=== PATIENT | male | born 2000 | race African-American/Black ===

== ENCOUNTER 2023-12-10 22:37 | Emergency (ER) | payer OTHER ==
[2023-12-10] MEDS ORDERED: ALBUTEROL 2.5 MG/3 ML NEB SOL ONE (23:02)
[2023-12-10] MEDS ORDERED: predniSONE 20 MG TAB ONE (23:02)
[2023-12-10] MEDS ORDERED: IPRATROPIUM BROM 0.5MG/2.5ML ONE (23:02)
--- NOTE | 2023-12-11 00:29 | ER ---
Nurse's Notes [facility] Name: Varghese Ugalde III Age: 23 yrs Sex: Male : 2000 Arrival Date: 12/10/2023 Time: 22:37 Bed 15 Private MD: Diagnosis: Unspecified asthma with (acute) exacerbation Presentation: 12/09 22:50 Chief complaint: Patient states: ASTHMA FLARE-UP CAUSING HIS CHEST TO HURT. Coronavirus jj7 screen: At this time, the client does not indicate any symptoms associated with coronavirus-19. Ebola Screen: No symptoms or risks identified at this time. Initial Sepsis Screen: Does the patient meet any 2 criteria? No. Patient's initial sepsis screen is negative. Does the patient have a suspected source of infection? No. Patient's initial sepsis screen is negative. Risk Assessment: Do you want to hurt yourself or someone else? Patient reports no desire to harm self or others. Note NEB TREATMENT. Onset of symptoms was December 10, 2023. 22:50 Method Of Arrival: Ambulatory [facility] 22:50 Acuity: JOANN 4 jj7 Triage Assessment: 22:54 General: Appears in no apparent distress. comfortable, Behavior is calm, cooperative, jj7 appropriate for age. Pain: Complains of pain in chest. Cardiovascular: Reports chest pain. Respiratory: Reports shortness of breath Airway is patent Trachea midline Respiratory effort is even, unlabored, Respiratory pattern is regular, symmetrical. Historical: - Allergies: 22:54 No Known Allergies; jj7 - PMHx: 22:54 Asthma; jj7 - PSHx: 22:54 LEFT PINKY; jj7 - Immunization history:: Adult Immunizations not up to date, Client reports having NOT received the Covid vaccine. Flu vaccine is not up to date. - Infectious Disease History:: Denies. - Social history:: Smoking status: Patient denies any tobacco usage or history of. Patient/guardian denies using alcohol, street drugs, IV drugs. Screenin:29 [facility] ED Fall Risk Assessment (Adult) History of falling in the last 3 months, vc1 including since admission No falls in past 3 months (0 pts) Confusion or Disorientation No (0 pts) Intoxicated or Sedated No (0 pts) Impaired Gait No (0 pts) Mobility Assist Device Used No (0 pt) Altered Elimination No (0 pt) Score/Fall Risk Level 0 - 2 = Low Risk Oriented to surroundings, Maintained a safe environment, Educated pt \T\ family on fall prevention, incl call for assistance when getting out of bed. Abuse screen: Denies threats or abuse. Nutritional screening: No deficits noted. Tuberculosis screening: No symptoms or risk factors identified. Vital Signs: 22:50 BP 132 / 88; Pulse 80; Resp 20; Temp 98.8; Pulse Ox 100% ; Weight 86.18 kg; Height 6 jj7 ft. 0 in. ; Pain 8/10; 23:33 BP 125 / 75; Pulse 79; Resp 18; Pulse Ox 98% on R/A; vc1 23:46 BP 129 / 75; Pulse 72; Pulse Ox 98% on R/A; Pain 0/10; 6 12/10 00:39 BP 120 / 74; Pulse 64; Resp 19; Temp 98.2(TE); Pulse Ox 100% on R/A; Pain 0/10; 6 12/09 22:50 Body Mass Index 25.77 (86.18 kg, 182.88 cm) [facility] 12/09 22:50 Pain Scale: Adult j 23:46 Pain Scale: Adult 6 12/10 00:39 Pain Scale: Adult 6 ED Course: 12/09 22:43 Patient arrived in ED. mg5 22:46 Regi Antunez FNP-C is [facility]. kb 22:46 Alverto Villar MD is Attending Physician. kb 22:54 Triage completed. jj7 22:54 Arm band placed on left wrist. j7 23:30 Patient has correct armband on for positive identification. Bed in low position. Call vc1 light in reach. Pulse ox on. NIBP on. 23:30 No provider procedures requiring assistance completed. Patient did not have IV access vc1 during this emergency room visit. Response to oxygen therapy: symptoms improved. 23:46 Ok Morales, LOI is Primary Nurse. 6 12/10 00:18 Chest Single View In Process Unspecified. EDMS 00:40 Provided Education on: get a PCP. 6 Administered Medications: 12/09 23:06 Drug: predniSONE PO 40 mg PO once Route: PO; j 23:33 Follow up: Response: No adverse reaction; Marked relief of symptoms vc1 23:06 Drug: Albuterol Inhalation 2.5 mg Inhalation once Route: Inhalation; jj7 23:33 Follow up: Response: No adverse reaction; Marked relief of symptoms vc1 23:34 Follow up: Response: No adverse reaction; Marked relief of symptoms vc1 23:06 Drug: Ipratropium Inhalation Aerosol 0.5 mg Inhalation once Route: Inhalation; jj7 Medication: 23:33 VIS not applicable for this client. vc1 Outcome: 12/10 00:28 Discharge ordered by . claire 00:40 Discharged to home ambulatory, tm6 00:40 Condition: stable 00:40 Discharge instructions given to patient, Instructed on discharge instructions, follow up and referral plans. medication usage, Demonstrated understanding of instructions, follow-up care, medications, Prescriptions given X 3, 00:40 Patient left the ED. tm6 Signatures: Dispatcher [employer] EDMS Regi Antunez, [facility] [employer]CH CREDIT COUNSELOR-Nancy Conteh RN RN vc1 Nicky Panda RN RN jj7 Fatou Garces 5 Ok Morales RN RN tm6
--- NOTE | 2023-12-11 00:29 | EDPHYS ---
Physician Documentation [facility] Name: Varghese Ugalde III Age: 23 yrs Sex: Male : 2000 Arrival Date: 12/10/2023 Time: 22:37 Bed 15 Private MD: ED Physician Alverto Villar HPI: 12/09 22:53 This 23 yrs old Male presents to ER via Unassigned with complaints of Chest Pain, kb Breathing Difficulty. 22:53 Pt is a 23 year old male who presents for asthma exacerbation. States he got caught in kb the rain this morning and it caused his asthma to flare up. Reports pain in his chest that he normally has due to asthma. States he does not have an inhaler. Symptoms began at 0500. Denies shortness of breath, nausea. . Historical: - Allergies: 22:54 No Known Allergies; jj7 - PMHx: 22:54 Asthma; jj7 - PSHx: 22:54 LEFT PINKY; jj7 - Immunization history:: Adult Immunizations not up to date, Client reports having NOT received the Covid vaccine. Flu vaccine is not up to date. - Infectious Disease History:: Denies. - Social history:: Smoking status: Patient denies any tobacco usage or history of. Patient/guardian denies using alcohol, street drugs, IV drugs. ROS: 22:53 Constitutional: As per HPI kb Exam: 22:53 Constitutional: This is a well developed, well nourished patient who is awake, alert, kb and in no acute distress. Head/Face: Normocephalic, atraumatic. ENT: Moist Mucous membranes Cardiovascular: Regular rate Abdomen/GI: Soft, non-tender. No distention Skin: Warm, dry with normal turgor. Normal color. MS/ Extremity: Pulses equal, no cyanosis. Neurovascular intact. Full, normal range of motion. Neuro: Awake and alert, GCS 15, oriented to person, place, time, and situation. Moves all extremities. Normal gait. 22:53 Respiratory: the patient does not display signs of respiratory distress, Respirations: normal, Breath sounds: wheezing: expiratory that is mild, bilateral lower lobes, 23:21 ECG was reviewed by the Attending Physician. kb Vital Signs: 22:50 BP 132 / 88; Pulse 80; Resp 20; Temp 98.8; Pulse Ox 100% ; Weight 86.18 kg; Height 6 j7 ft. 0 in. ; Pain 8/10; 23:33 BP 125 / 75; Pulse 79; Resp 18; Pulse Ox 98% on R/A; vc1 23:46 BP 129 / 75; Pulse 72; Pulse Ox 98% on R/A; Pain 0/10; tm6 12/10 00:39 BP 120 / 74; Pulse 64; Resp 19; Temp 98.2(TE); Pulse Ox 100% on R/A; Pain 0/10; tm6 12/09 22:50 Body Mass Index 25.77 (86.18 kg, 182.88 cm) [facility] 12/09 22:50 Pain Scale: Adult jj7 23:46 Pain Scale: Adult 6 12/10 00:39 Pain Scale: Adult tm6 MDM: 12/09 22:46 Patient medically screened. kb 22:53 Differential diagnosis: asthma exacerbation, arrhythmia, pneumonia. Data reviewed: kb vital signs, nurses notes. 12/10 00:28 Independent interpretation of the following test(s) in the Emergency Department EKG: kb See my EKG interpretation above X-Ray: My interpretation is chest x-ray without infiltrate. Counseling: I had a detailed discussion with the patient and/or guardian regarding the historical points, exam findings, and any diagnostic results supporting the discharge/admit diagnosis, radiology results, the need for outpatient follow up, a family practitioner, to return to the emergency department if symptoms worsen or persist or if there are any questions or concerns that arise at home. Response to treatment: the patient's symptoms have resolved after treatment. 12/10 00:03 Order name: Chest Single View EDMS 12/09 22:49 Order name: EKG - Nurse/Tech; Complete Time: 23:07 kb EC/14 23:21 Rate is 60 beats/min. Rhythm is regular. QRS [place] is Normal. [place] interval is normal at kb 144 msec. QRS interval is normal at 96 msec. QT interval is normal at 354 msec. Administered Medications: 23:06 Drug: predniSONE PO 40 mg PO once Route: PO; jj7 23:33 Follow up: Response: No adverse reaction; Marked relief of symptoms vc1 23:06 Drug: Albuterol Inhalation 2.5 mg Inhalation once Route: Inhalation; jj7 23:33 Follow up: Response: No adverse reaction; Marked relief of symptoms vc1 23:34 Follow up: Response: No adverse reaction; Marked relief of symptoms vc1 23:06 Drug: Ipratropium Inhalation Aerosol 0.5 mg Inhalation once Route: Inhalation; jj7 Disposition: 12/10 01:04 Co-signature as Attending Physician, Alverto Villar MD I agree with the assessment sp4 and plan of care. I reviewed the patient's care provided by Advanced Practice Provider \T\ agree w/ the diagnosis \T\ care plan. I personally saw the pt \T\ performed a substantive portion of the visit, incldng all aspects of the (History/Exam/Medical Decision Making). Disposition Summary: 12/11/23 00:28 Discharge Ordered Notes: Location: Home kb Condition: Stable kb Diagnosis - Unspecified asthma with (acute) exacerbation kb Followup: kb - With: Emergency Department - When: As needed - Reason: Worsening of condition Followup: kb - With: Private Physician - When: 2 - 3 days - Reason: Recheck today's complaints, Continuance of care, Re-evaluation by your physician Discharge Instructions: - Discharge Summary Sheet kb - Asthma, Adult, [id number] kb Forms: - Work release form kb - Medication Reconciliation Form kb - Antibiotic Education kb - Prescription Opioid Use kb - Patient Portal Instructions kb - Leadership Thank You Letter kb Prescriptions: - albuterol sulfate 90 mcg/actuation Inhalation HFA Aerosol Inhaler - inhale 2 puff INHALATION route every 4-6 hours As needed; 1 unit; Refills: 0, kb Product Selection Permitted - Prednisone 20 mg Oral Tablet - take 1 tablet ORAL route once daily for 5 days; 5 tablet; Refills: 0, Product kb Selection Permitted - Albuterol Sulfate 2.5 mg /3 mL (0.083 %) Inhalation Solution for Nebulization - inhale 1 unit NEBULIZATION route every 8 hours As needed; 1 unit; Refills: 0, kb Product Selection Permitted Signatures: Dispatcher [employer] Regi Kim, ELIZABETHC Nicky Olmstead RN RN jj7 Alverto Villar MD MD sp4 Nancy Weinstein RN vc1 Corrections: (The following items were deleted from the chart) 12/09 22:49 22:49 Chest Single View+RAD.RAD.BRZ ordered. EDMS EDMS
[2023-12-11 01:38] VITALS: BP 120/74; TEMP 98.2; O2SAT 100
--- NOTE | 2023-12-11 12:30 | RAD REPORT ---
EXAM DESCRIPTION: Chest single view CLINICAL HISTORY: PAIN COMPARISON: None FINDINGS: Cardiac silhouette is within normal limits. There is no focal parenchymal or pleural disea se. There is no acute osseous process visualized. IMPRESSION: No evidence of acute cardiopulmonary disease. Electronically signed by: Harsha Spencer MD 12/11/2023 12:40 AM CDT Due to temporary technical issues with the PACS/Fluency reporting system, reports are being signed by the in house radiologist without review as a courtesy to ensure prompt reporting. The interpreting r adiologist is fully responsible for the content of the report.
== END 2023-12-11 00:40 | disposition home or self-care (01) ==
LOC: ER 22:37
DX: J45.901 Unspecified asthma with (acute) exacerbation (principal); Z28.310 Unvaccinated for COVID-19
CPT/HCPCS: 93005; 71045; J7512; J7613; J7644

== ENCOUNTER 2024-03-19 06:10 | Emergency (ER) | payer OTHER, SELFPAY ==
[2024-03-19] MEDS ORDERED: IPRATROPIUM BROM 0.5MG/2.5ML ONE (06:28)
[2024-03-19] MEDS ORDERED: LEVALBUTEROL 1.25 MG/3 ML NEB ONE ×2 (06:28→07:26)
[2024-03-19] MEDS ORDERED: METHYLPREDNISOLONE 125 MG INJ ONE (06:28)
[2024-03-19] MEDS ORDERED: predniSONE 20 MG TAB ONE (06:28)
[2024-03-19] MEDS ORDERED: NA CHLORIDE 0.9% 1,000 ML ONE (06:29)
[2024-03-19] MEDS ORDERED: AZITHROMYCIN 250 MG TAB ONE (06:53)
[2024-03-19 07:04] LABS: Absolute Eosinophils 0.5 K/uL (0-0.5); Absolute Lymphocytes (CBC) 1.3 K/uL (0.7-4.9); Absolute Monocytes 0.8 K/uL (0.1-1.3); Absolute Neutrophil 4.3 K/uL (1.8-8.0); Basophils % 0.4 % (0-1.3); Eosinophils % 7.6 % (0-4.4); Hematocrit 45.1 % (39.6-49.0); Hemoglobin 15.1 g/dL (13.6-17.9); Lymphocytes % 18.1 % (15.3-44.8); MCH 30.6 pg (27.0-35.0); MCHC 33.6 g/dL (32.0-36.0); MCV 91.1 fL (80-100); MPV 8.6 fL (7.6-11.3); Monocytes % 11.5 % (3.3-12.3); Neutrophils % 62.4 % (41.7-73.7); Platelets 211 thou/uL (152-406); RBC Red Blood Cell Count 4.95 M/uL (4.33-5.43); Red Cell Distribution Width 13.4 % (12.1-15.2)
[2024-03-19] MEDS ORDERED: Magnesium Sulfate 2gm IVPB 2 G/50 ML BAG IV ONE (07:09)
[2024-03-19 07:26] LABS: Albumin 3.7 g/dL (3.4-5.0); Albumin/Globulin Ratio 0.9 (1.1-1.8); Anion Gap 8.3 mEq/L (5.0-15.0); Bilirubin Total 0.8 mg/dL (0.2-1.0); Globulin 4.1 g/dL (2.3-3.5); Potassium 4.3 mEq/L (3.5-5.1); Protein, Total 7.8 g/dL (6.4-8.2)
[2024-03-19 07:32] LABS: SARS-CoV-2 Antigen CONTROL BLUE LINE VIS/BG OK; SARS-CoV-2 Antigen Rapid Res Negative (Negative)
--- NOTE | 2024-03-19 07:33 | EDPHYS ---
Physician Documentation [facility] Name: Varghese Ugalde III Age: 23 yrs Sex: Male : 2000 Arrival Date: 03/19/2024 Time: 06:10 Bed 20 Private MD: ED Physician Eddie Landers HPI: 03/19 06:50 This 23 yrs old Black Male presents to ER via Ambulatory with complaints of Asthma shaka Exacerbation, Breathing Difficulty. 06:50 The patient presents to the emergency department with wheezing, Current therapy: shaka albuterol nebs, that began without any particular precipitating event. Onset: The symptoms/episode began/occurred 2 day(s) ago. Modifying factors: The symptoms are alleviated by nothing, the symptoms are aggravated by nothing. Associated signs and symptoms: The patient has no apparent associated signs or symptoms. Severity of symptoms: At their worst the symptoms were moderate in the emergency department the symptoms are unchanged. The patient has experienced similar episodes in the past, multiple times. Historical: - Allergies: 06:28 CORN CONTAINING PRODUCTS; vc1 - PMHx: 06:28 Asthma; vc1 - PSHx: 06:28 LEFT PINKY; vc1 - Immunization history:: Client reports having NOT received the Covid vaccine. - Infectious Disease History:: Denies. - Social history:: Smoking status: Patient reports use of chewing tobacco. ROS: 06:50 Constitutional: Negative for fever, chills, and weight loss, Eyes: Negative for injury, shaka pain, redness, and discharge, ENT: Negative for injury, pain, and discharge, Neck: Negative for injury, pain, and swelling, Cardiovascular: Negative for chest pain, palpitations, and edema, Abdomen/GI: Negative for abdominal pain, nausea, vomiting, diarrhea, and constipation, Back: Negative for injury and pain, : Negative for injury, bleeding, discharge, and swelling, MS/Extremity: Negative for injury and deformity, Skin: Negative for injury, rash, and discoloration, Neuro: Negative for headache, weakness, numbness, tingling, and seizure, Psych: Negative for depression, anxiety, suicide ideation, homicidal ideation, and hallucinations, Allergy/Immunology: Negative for hives, rash, and allergies, Endocrine: Negative for neck swelling, polydipsia, polyuria, polyphagia, and marked weight changes, Hematologic/Lymphatic: Negative for swollen nodes, abnormal bleeding, and unusual bruising, 06:50 Respiratory: Positive for cough, shortness of breath, wheezing, inspiratory, expiratory, Exam: 06:50 Constitutional: This is a well developed, well nourished patient who is awake, alert, shaka and in no acute distress. Head/Face: Normocephalic, atraumatic. Eyes: Pupils equal round and reactive to light, extra-ocular motions intact. Lids and lashes normal. Conjunctiva and sclera are non-icteric and not injected. Cornea within normal limits. Periorbital areas with no swelling, redness, or edema. ENT: Nares patent. No nasal discharge, no septal abnormalities noted. Tympanic membranes are normal and external auditory canals are clear. Oropharynx with no redness, swelling, or masses, exudates, or evidence of obstruction, uvula midline. Mucous membranes moist. Neck: Trachea midline, no thyromegaly or masses palpated, and no cervical lymphadenopathy. Supple, full range of motion without nuchal rigidity, or vertebral point tenderness. No Meningismus. Chest/axilla: Normal chest wall appearance and motion. Nontender with no deformity. No lesions are appreciated. Cardiovascular: Regular rate and rhythm with a normal S1 and S2. No gallops, murmurs, or rubs. Normal PMI, no JVD. No pulse deficits. Abdomen/GI: Soft, non-tender, with normal bowel sounds. No distension or tympany. No guarding or rebound. No evidence of tenderness throughout. Back: No spinal tenderness. No costovertebral tenderness. Full range of motion. Male : Normal genitalia with no discharge or lesions. Skin: Warm, dry with normal turgor. Normal color with no rashes, no lesions, and no evidence of cellulitis. MS/ Extremity: Pulses equal, no cyanosis. Neurovascular intact. Full, normal range of motion. Neuro: Awake and alert, GCS 15, oriented to person, place, time, and situation. Cranial nerves II-XII grossly intact. Motor strength 5/5 in all extremities. Sensory grossly intact. Cerebellar exam normal. Normal gait. Psych: Awake, alert, with orientation to person, place and time. Behavior, mood, and affect are within normal limits. 06:50 Respiratory: the patient does not display signs of respiratory distress, Respirations: labored breathing, that is mild, Breath sounds: rhonchi, that are mild, stridor, that is mild, + upper airway congestion. wheezing: inspiratory expiratory 22, 06:50 Musculoskeletal/extremity: DVT Exam: No signs of deep vein thrombosis. no pain, no swelling, no tenderness, negative Homans' sign noted on exam, no appreciated bluish discoloration, no erythema, no increased warmth, Vital Signs: 06:26 BP 120 / 76; Pulse 73; Resp 18; Pulse Ox 100% ; Weight 79.38 kg; Height 5 ft. 11 in. ; vc1 Pain 0/10; 06:58 BP 137 / 71; Pulse 61; Resp 22 S; Temp 97.9; Pulse Ox 97% on R/A; Pain 0/10; mt4 07:57 BP 132 / 70; Pulse 62; Resp 19; Pulse Ox 100% on R/A; ar6 06:26 Body Mass Index 24.41 (79.38 kg, 180.34 cm) vc1 06:26 Pain Scale: Adult vc1 06:58 Pain Scale: Adult mt4 Juan Coma Score: 06:58 Eye Response: spontaneous(4). Motor Response: obeys commands(6). Verbal Response: mt4 oriented(5). Total: 15. MDM: 06:19 Patient medically screened. shaka 06:52 Differential diagnosis: acute asthma, exercise-induced asthma, reactive airway, CHF, shaka arrythmia, dehydration. Antibiotic administration: The patient is discharged and will get outpatient antibiotics, Zithromax. Data reviewed: vital signs, nurses notes, lab test result(s), radiologic studies, plain films. Consideration of Admission/Observation Escalation of care including admission/observation considered. I considered the following discharge prescriptions or medication management in the emergency department Medications were administered in the Emergency Department. See MAR. Independent interpretation of the following test(s) in the Emergency Department X-Ray: My interpretation is cxr neg. Test considered but Not performed: CT: no ct chest. 03/19 06:22 Order name: CBC with Diff; Complete Time: 07:20 [facility] 03/19 06:22 Order name: Comprehensive Metabolic Panel; Complete Time: 07:32 [facility] 03/19 06:22 Order name: SARS RAPID 03/19 06:22 Order name: Flu [facility] 03/19 06:22 Order name: Chest Pa And Lat (2 Views) XRAY shaka Administered Medications: 06:49 Drug: MethylPrednisoLONE IVP 125 mg IVP once Route: IVP; Site: right antecubital; mt4 07:46 Follow up: Response: No adverse reaction ar6 06:49 Drug: predniSONE PO 60 mg PO once Route: PO; mt4 07:46 Follow up: Response: No adverse reaction ar6 06:49 Drug: Levalbuterol Inhalation 3.75 mg Inhalation once Route: Inhalation; mt4 07:47 Follow up: Response: No adverse reaction ar6 06:49 Drug: Ipratropium Inhalation Aerosol 0.5 mg Inhalation once Route: Inhalation; mt4 07:46 Follow up: Response: No adverse reaction ar6 06:50 Drug: NS 0.9% IV 1000 ml IV at 1 bolus Per protocol; 1000 mL bolus Route: IV; Rate: 1 mt4 bolus; Site: right antecubital; 07:46 Follow up: Response: No adverse reaction; IV Status: Completed infusion ar6 06:55 Drug: AZITHromycin PO 500 mg PO once Route: PO; mt4 07:46 Follow up: Response: No adverse reaction ar6 07:23 Drug: Magnesium Sulfate IVPB 2 grams IVPB once over 1 hrs Route: IVPB; Infused Over: 1 mb9 hrs; Site: right antecubital; 07:50 Follow up: Response: No adverse reaction; IV Status: Completed infusion; IV Intake: [id number] 07:27 Drug: Levalbuterol Inhalation 2.5 mg Inhalation once Route: Inhalation; ar6 07:46 Follow up: Response: No adverse reaction ar6 07:57 Follow up: Response: No adverse reaction ar6 Disposition Summary: 03/19/24 07:32 Discharge Ordered Notes: Location: Home shaka Problem: new shaka Symptoms: have improved shaka Condition: Fair shaka Diagnosis - Acute upper respiratory infection, unspecified shaka - Mild persistent asthma with (acute) exacerbation shaka Followup: shaka - With: Private Physician - When: 2 - 3 days - Reason: Recheck today's complaints, Continuance of care, Re-evaluation by your physician Followup: shaka - With: Harmeet Haley MD - When: 2 - 3 days - Reason: Recheck today's complaints, Re-evaluation by your physician Discharge Instructions: - Discharge Summary Sheet shaka - Asthma, Adult shaka - How to Use a Metered Dose Inhaler shaka - Upper Respiratory Infection, Adult shaka - Asthma Attack shaka - Upper Respiratory Infection, Adult, [id number] shaka - Cough, Adult [facility] Forms: - Medication Reconciliation Form shaka - Antibiotic Education shaka - Prescription Opioid Use shaka - Patient Portal Instructions shaka - Leadership Thank You Letter shaka - Work release form iw Prescriptions: - albuterol sulfate 90 mcg/actuation Inhalation HFA Aerosol Inhaler - inhale 2 puff INHALATION route every 4 to 6 hours as needed for shortness of shaka breath or wheezing; 1 unit; Refills: 0, Product Selection Permitted - Prednisone 20 mg Oral Tablet - take 3 tablets ORAL route once daily for 5 days; 15 tablet; Refills: 0, Product shaka Selection Permitted - Albuterol Sulfate 2.5 mg /3 mL (0.083 %) Inhalation Solution for Nebulization - inhale 1 unit NEBULIZATION route every 6-8 hours As needed; 25 unit; Refills: shaka 0, Product Selection Permitted - Zithromax 500 mg Oral Tablet - take 1 tablet ORAL route once daily for 5 days; 5 tablet; Refills: 0, Product shaka Selection Permitted Signatures: Dispatcher [employer] EDMS Eddie Landers MD MD cha Calcote, Vanessa RN RN vc1 Leonor Estevez RN RN mb9 Ansley Borden RN RN mt4 Reyna Vaughan RN RN ar6 Corrections: (The following items were deleted from the chart) 06:23 06:23 CBC+H.LAB.BRZ ordered. EDMS EDMS 06:23 06:23 COMPREHENSIVE METABOLIC PANEL+C.LAB.BRZ ordered. EDMS EDMS 06:23 06:23 SARS-COV-2 Antigen Rapid+I.LAB.BRZ ordered. EDMS EDMS 06:23 06:23 Influenza Screen (A \T\ B)+BA.LAB.BRZ ordered. EDMS EDMS 06:30 06:28 Allergies: No Known Allergies; vc1 vc1
--- NOTE | 2024-03-19 07:33 | ER ---
Nurse's Notes [facility] Name: Varghese Ugalde III Age: 23 yrs Sex: Male : 2000 Arrival Date: 03/19/2024 Time: 06:10 Bed 20 Private MD: Diagnosis: Acute upper respiratory infection, unspecified;Mild persistent asthma with (acute) exacerbation Presentation: 03/19 06:26 Chief complaint: Patient states: I can't breathe I mow grass and I think my asthma is vc1 acting up. Coronavirus screen: Client denies travel out of the [place] in the last 14 days. At this time, the client does not indicate any symptoms associated with coronavirus-19. Ebola Screen: Patient negative for fever greater than or equal to 101.5 degrees Fahrenheit, and additional compatible Ebola Virus Disease symptoms Patient denies exposure to infectious person. Patient denies travel to an Ebola-affected area in the 21 days before illness onset. No symptoms or risks identified at this time. Initial Sepsis Screen: Does the patient meet any 2 criteria? No. Patient's initial sepsis screen is negative. Does the patient have a suspected source of infection? No. Patient's initial sepsis screen is negative. Risk Assessment: Do you want to hurt yourself or someone else? Patient reports no desire to harm self or others. Onset of symptoms was March 18, 2024. Care prior to arrival: None. Activity prior to arrival: None. Mechanism of Injury: No Mechanism of Injury. Transition of care: patient was not received from another setting of care. 06:26 Method Of Arrival: Ambulatory vc1 06:26 Acuity: JOANN 4 vc1 Triage Assessment: 06:33 General: Appears in no apparent distress. Behavior is calm, cooperative, appropriate vc1 for age. Pain: Denies pain. Neuro: Level of Consciousness is awake, alert, obeys commands, Oriented to person, place, time, situation, Appropriate for age. Cardiovascular: No deficits noted. Capillary refill < 3 seconds Patient's skin is warm and dry. Respiratory: the patient has mild shortness of breath. Respiratory: Reports shortness of breath at rest Airway is patent Respiratory effort is even, unlabored, Respiratory pattern is regular, symmetrical, Onset: The symptoms/episode began/occurred yesterday. Historical: - Allergies: 06:28 CORN CONTAINING PRODUCTS; vc1 - PMHx: 06:28 Asthma; vc1 - PSHx: 06:28 LEFT PINKY; vc1 - Immunization history:: Client reports having NOT received the Covid vaccine. - Infectious Disease History:: Denies. - Social history:: Smoking status: Patient reports use of chewing tobacco. Screenin:31 [facility] ED Fall Risk Assessment (Adult) History of falling in the last 3 months, vc1 including since admission No falls in past 3 months (0 pts) Confusion or Disorientation No (0 pts) Intoxicated or Sedated No (0 pts) Impaired Gait No (0 pts) Mobility Assist Device Used No (0 pt) Altered Elimination No (0 pt) Score/Fall Risk Level 0 - 2 = Low Risk Oriented to surroundings, Maintained a safe environment, Educated pt \T\ family on fall prevention, incl call for assistance when getting out of bed. Abuse screen: Denies threats or abuse. Nutritional screening: No deficits noted. Tuberculosis screening: No symptoms or risk factors identified. Assessment: 06:32 Pain: Denies pain. Cardiovascular: Rhythm is regular. Respiratory: Airway is patent vc1 Respiratory effort is even, Respiratory pattern is regular, symmetrical. 06:58 General: Appears in no apparent distress. slender, Behavior is cooperative, anxious. mt4 Pain: Denies pain. Neuro: Level of Consciousness is awake, alert, obeys commands, confused, Oriented to person, place, time, situation, [employer] are equal bilaterally Moves all extremities. Gait is steady, Speech is normal. Respiratory: Breath sounds with wheezes. GI: Abdomen is flat, non-distended, Abd is soft Abd is non tender. : Denies burning with urination. Musculoskeletal: Capillary refill < 3 seconds, Range of motion: intact in all extremities. 07:28 Reassessment: No changes from previously documented assessment. Patient and/or family mb9 updated on plan of care and expected duration. Pain level reassessed. Patient is alert, oriented x 3, equal unlabored respirations, skin warm/dry/pink. 07:33 Reassessment: D/C pending completion of IV medication. ar6 Vital Signs: 06:26 BP 120 / 76; Pulse 73; Resp 18; Pulse Ox 100% ; Weight 79.38 kg; Height 5 ft. 11 in. ; vc1 Pain 0/10; 06:58 BP 137 / 71; Pulse 61; Resp 22 S; Temp 97.9; Pulse Ox 97% on R/A; Pain 0/10; mt4 07:57 BP 132 / 70; Pulse 62; Resp 19; Pulse Ox 100% on R/A; ar6 06:26 Body Mass Index 24.41 (79.38 kg, 180.34 cm) vc1 06:26 Pain Scale: Adult vc1 06:58 Pain Scale: Adult mt4 [place] Coma Score: 06:58 Eye Response: spontaneous(4). Motor Response: obeys commands(6). Verbal Response: mt4 oriented(5). Total: 15. ED Course: 06:15 Patient arrived in ED. gm2 06:19 Eddie Landers MD is Attending Physician. shaka 06:21 Ansley Borden, LOI is Primary Nurse. mt4 06:28 Triage completed. vc1 06:30 Arm band placed on right wrist. vc1 06:31 Patient has correct armband on for positive identification. Bed in low position. Call vc1 light in reach. Pulse ox on. NIBP on. 06:58 No apparent distress. Resting quietly. Awaiting lab results, Awaiting radiology results.mt4 06:58 Provided Education on: breathing treatment education . Noise minimized. Lights dimmed. mt4 Warm blanket given. Pillow given. Verbal reassurance given. Head of bed elevated. 06:58 No provider procedures requiring assistance completed. Inserted saline lock: 20 gauge mt4 in right antecubital area, using aseptic technique. Patient maintains SpO2 saturation greater than 95% on room air. 07:08 Chest Pa And Lat (2 Views) XRAY In Process Unspecified. EDMS 07:32 Harmeet Haley MD is Referral Physician. shaka 07:57 IV discontinued, intact, bleeding controlled, No redness/swelling at site. Pressure ar6 dressing applied. Administered Medications: 06:49 Drug: MethylPrednisoLONE IVP 125 mg IVP once Route: IVP; Site: right antecubital; mt4 07:46 Follow up: Response: No adverse reaction ar6 06:49 Drug: predniSONE PO 60 mg PO once Route: PO; mt4 07:46 Follow up: Response: No adverse reaction ar6 06:49 Drug: Levalbuterol Inhalation 3.75 mg Inhalation once Route: Inhalation; mt4 07:47 Follow up: Response: No adverse reaction ar6 06:49 Drug: Ipratropium Inhalation Aerosol 0.5 mg Inhalation once Route: Inhalation; mt4 07:46 Follow up: Response: No adverse reaction ar6 06:50 Drug: NS 0.9% IV 1000 ml IV at 1 bolus Per protocol; 1000 mL bolus Route: IV; Rate: 1 mt4 bolus; Site: right antecubital; 07:46 Follow up: Response: No adverse reaction; IV Status: Completed infusion ar6 06:55 Drug: AZITHromycin PO 500 mg PO once Route: PO; mt4 07:46 Follow up: Response: No adverse reaction ar6 07:23 Drug: Magnesium Sulfate IVPB 2 grams IVPB once over 1 hrs Route: IVPB; Infused Over: 1 mb9 hrs; Site: right antecubital; 07:50 Follow up: Response: No adverse reaction; IV Status: Completed infusion; IV Intake: [id number] 07:27 Drug: Levalbuterol Inhalation 2.5 mg Inhalation once Route: Inhalation; ar6 07:46 Follow up: Response: No adverse reaction ar6 07:57 Follow up: Response: No adverse reaction ar6 Medication: 06:58 VIS not applicable for this client. mt4 Intake: 07:50 IV: 50ml; Total: 50ml. ar6 Outcome: 07:32 Discharge ordered by MD. matt 07:57 Discharged to home ambulatory, ar6 07:57 Condition: good 07:57 Discharge instructions given to patient, Instructed on discharge instructions, follow up and referral plans. medication usage, Demonstrated understanding of instructions, follow-up care, medications, Prescriptions given X 4, 08:05 Patient left the ED. ar6 Signatures: Dispatcher [employer] EDEddie Key MD MD cha Calcote, Vanessa RN RN vc1 Leonor Estevez RN RN [id number] Elizabeth Wallace Molinec, RN RN mt4 Reyna Vaughan RN RN ar6 Corrections: (The following items were deleted from the chart) 06:30 06:28 Allergies: No Known Allergies; vc1 vc1
--- NOTE | 2024-03-19 07:50 | RAD REPORT ---
EXAM DESCRIPTION: Quin Young And Deanna (2 Views)03/19/2024 7:07 am CLINICAL HISTORY: Cough COMPARISON: November 2023 FINDINGS: Lungs are mildly to moderately hyperaerated. The lungs appear clear of acute infiltrate. The heart is normal size IMPRESSION: No acute abnormalities displayed
[2024-03-19 08:20] VITALS: TEMP 97.9
[2024-03-19 08:25] VITALS: BP 132/70; O2SAT 100
== END 2024-03-19 08:05 | disposition home or self-care (01) ==
LOC: ER 06:10
DX: J45.31 Mild persistent asthma with (acute) exacerbation (principal); J06.9 Acute upper respiratory infection, unspecified; F17.220 Nicotine dependence, chewing tobacco, uncomplicated; Z11.52 Encounter for screening for COVID-19
CPT/HCPCS: 36415; 71046; 80053; 85025; 87804; 87811; 96361; 96365; 96375; 99285; J2919; J3475; J7030; J7512; J7614; J7644

== ENCOUNTER 2024-03-20 08:47 | Emergency (ER) | payer OTHER, SELFPAY ==
[2024-03-20] MEDS ORDERED: ALBUTEROL 2.5 MG/3 ML NEB SOL ONE ×2 (09:15→10:08)
[2024-03-20] MEDS ORDERED: predniSONE 20 MG TAB ONE (09:15)
[2024-03-20] MEDS ORDERED: IPRATROPIUM BROM 0.5MG/2.5ML ONE (09:15)
--- NOTE | 2024-03-20 10:53 | EDPHYS ---
Physician Documentation [facility] Name: Varghese Ugalde III Age: 23 yrs Sex: Male : 2000 Arrival Date: 03/20/2024 Time: 08:47 Bed 16 Private MD: ED Physician Farhan Barron HPI: 03/20 09:17 This 23 yrs old Black Male presents to ER via Ambulatory with complaints of wheezing. rt 09:17 Patient presents to the ED with dyspnea, wheezing. The patient has a history of asthma. rt Was seen in the ED yesterday for an asthma exacerbation. Patient states that he has usually well-controlled with nebulizer treatments. States that the mask of his nebulizer machine is nonfunctional at this time, the nebulizer otherwise works. Denies other acute complaints at this time, symptoms are moderate in severity, no other aggravating elevating factors.. Historical: - Allergies: 09:11 CORN CONTAINING PRODUCTS; ap3 - PMHx: 09:11 Asthma; ap3 - PSHx: 09:11 LEFT PINKY; ap3 - Immunization history:: Adult Immunizations up to date. - Infectious Disease History:: Denies. - Social history:: Smoking status: Patient reports use of chewing tobacco. - Family history:: not pertinent. ROS: 09:17 Constitutional: Negative for fever, chills, and weight loss, Cardiovascular: Negative rt for chest pain, palpitations, and edema, Abdomen/GI: Negative for abdominal pain, nausea, vomiting, diarrhea, and constipation, MS/Extremity: Negative for injury and deformity, Skin: Negative for injury, rash, and discoloration, Neuro: Negative for headache, weakness, numbness, tingling, and seizure, 09:17 Respiratory: Positive for cough, wheezing, Exam: 09:17 Constitutional: This is a well developed, well nourished patient who is awake, alert, rt and in no acute distress. Head/Face: Normocephalic, atraumatic. Chest/axilla: Normal chest wall appearance and motion. Nontender with no deformity. No lesions are appreciated. Cardiovascular: Regular rate and rhythm with a normal S1 and S2. No gallops, murmurs, or rubs. Normal PMI, no JVD. No pulse deficits. Abdomen/GI: Soft, non-tender, with normal bowel sounds. No distension or tympany. No guarding or rebound. No evidence of tenderness throughout. Skin: Warm, dry with normal turgor. Normal color with no rashes, no lesions, and no evidence of cellulitis. MS/ Extremity: Pulses equal, no cyanosis. Neurovascular intact. Full, normal range of motion. Neuro: Awake and alert, GCS 15, oriented to person, place, time, and situation. Cranial nerves II-XII grossly intact. Motor strength 5/5 in all extremities. Sensory grossly intact. Cerebellar exam normal. Normal gait. 09:17 Respiratory: Wheezes, diminished breath sounds heard on all lung camilo, mild respiratory distress, Vital Signs: 09:09 BP 125 / 66; Pulse 89; Resp 19; Temp 98; Pulse Ox 97% ; Weight 79.38 kg; Height 5 ft. ap3 11 in. ; 10:48 BP 122 / 64; Pulse 80; Resp 17; Pulse Ox 99% ; rs5 09:09 Body Mass Index 24.41 (79.38 kg, 180.34 cm) ap3 MDM: 09:04 Patient medically screened. rt 10:52 Differential Diagnosis Asthma. Data reviewed: vital signs, nurses notes. Test rt considered but Not performed: Other Details Patient was seen in the ED yesterday, had significant workup that was unremarkable. Do not believe that repeat workup is indicated today.. Care significantly affected by the following chronic conditions: Asthma. Counseling: I had a detailed discussion with the patient and/or guardian regarding the historical points, exam findings, and any diagnostic results supporting the discharge/admit diagnosis, the need for outpatient follow up, to return to the emergency department if symptoms worsen or persist or if there are any questions or concerns that arise at home. Response to treatment: the patient's symptoms have markedly improved after treatment. Administered Medications: 09:20 Drug: predniSONE PO 60 mg PO once Route: PO; rs5 10:00 Follow up: Response: No adverse reaction rs5 09:20 Drug: DuoNeb Nebulize (3:1) (2.5 mg - 0.5 mg) 3 ml Nebulizer once Route: Nebulizer; rs5 10:00 Follow up: Response: No adverse reaction rs5 09:55 Drug: Albuterol Inhalation 5 mg Inhalation once Route: Inhalation; rs5 10:40 Follow up: Response: No adverse reaction rs5 Disposition Summary: 03/20/24 10:52 Discharge Ordered Notes: Location: Home rt Problem: new rt Symptoms: have improved rt Condition: Stable rt Diagnosis - Unspecified asthma, uncomplicated rt Followup: rt - With: Private Physician - When: 2 - 3 days - Reason: Discharge Instructions: - Discharge Summary Sheet rt - Asthma, Adult rt Forms: - Medication Reconciliation Form rt - Antibiotic Education rt - Prescription Opioid Use rt - Patient Portal Instructions rt - Leadership Thank You Letter rt - Work release form rs5 Signatures: Lorri Diaz RN RN ap3 Farhan Barron MD MD rt Scottie Gibbs RN RN rs5
--- NOTE | 2024-03-20 10:53 | ER ---
Nurse's Notes [facility] Name: Varghese Ugalde III Age: 23 yrs Sex: Male : 2000 Arrival Date: 03/20/2024 Time: 08:47 Bed 16 Private MD: Diagnosis: Unspecified asthma, uncomplicated Presentation: 03/20 09:09 Chief complaint: Patient states: he was evaluated last night and dx with upper ap3 respiratory infection. patient reports his mask on his nebulizer broke and he has not been able to get a treatment at home. patient reports he was wheezing all night. Coronavirus screen: Client presents with at least one sign or symptom that may indicate coronavirus-19. Ebola Screen: No symptoms or risks identified at this time. Initial Sepsis Screen: Does the patient meet any 2 criteria? No. Patient's initial sepsis screen is negative. Does the patient have a suspected source of infection? No. Patient's initial sepsis screen is negative. Risk Assessment: Do you want to hurt yourself or someone else? Patient reports no desire to harm self or others. Onset of symptoms is unknown. 09:09 Method Of Arrival: Ambulatory ap3 09:09 Acuity: JOANN 4 ap3 Triage Assessment: 09:11 General: Appears in no apparent distress. Behavior is calm, cooperative, appropriate ap3 for age. Pain: Denies pain. EENT: Reports nasal congestion. Neuro: Level of Consciousness is awake, alert, obeys commands, Oriented to person, place, time, situation. Cardiovascular: Patient's skin is warm and dry. Respiratory: Reports shortness of breath cough that is Airway is patent Respiratory effort is even, Onset: The symptoms/episode began/occurred suddenly. Historical: - Allergies: 09:11 CORN CONTAINING PRODUCTS; ap3 - PMHx: 09:11 Asthma; ap3 - PSHx: 09:11 LEFT PINKY; ap3 - Immunization history:: Adult Immunizations up to date. - Infectious Disease History:: Denies. - Social history:: Smoking status: Patient reports use of chewing tobacco. - Family history:: not pertinent. Screenin:10 [facility] ED Fall Risk Assessment (Adult) History of falling in the last 3 months, rs5 including since admission No falls in past 3 months (0 pts) Confusion or Disorientation No (0 pts) Intoxicated or Sedated No (0 pts) Impaired Gait No (0 pts) Mobility Assist Device Used No (0 pt) Altered Elimination No (0 pt) Score/Fall Risk Level 0 - 2 = Low Risk Oriented to surroundings, Maintained a safe environment. 09:12 Abuse screen: Denies threats or abuse. Nutritional screening: No deficits noted. ap3 Tuberculosis screening: No symptoms or risk factors identified. Assessment: 09:05 General: Appears in no apparent distress. uncomfortable, Behavior is calm, cooperative. rs5 Pain: Denies pain. Neuro: Level of Consciousness is awake, alert, obeys commands, Oriented to person, place, time, situation. Cardiovascular: Patient's skin is warm and dry. Respiratory: Reports shortness of breath Airway is patent Respiratory effort is even, unlabored, Respiratory pattern is regular, symmetrical. GI: Abdomen is flat, non-distended, Abd is soft and non tender X 4 quads. : No signs and/or symptoms were reported regarding the genitourinary system. EENT: No signs and/or symptoms were reported regarding the EENT system. Derm: Skin is intact, Skin is pink, warm \T\ dry. Musculoskeletal: Range of motion: intact in all extremities. 10:01 Reassessment: Patient and/or family updated on plan of care and expected duration. Pain rs5 level reassessed. Patient is alert, oriented x 3, equal unlabored respirations, skin warm/dry/pink. 10:48 Reassessment: No changes from previously documented assessment. rs5 Vital Signs: 09:09 BP 125 / 66; Pulse 89; Resp 19; Temp 98; Pulse Ox 97% ; Weight 79.38 kg; Height 5 ft. ap3 11 in. ; 10:48 BP 122 / 64; Pulse 80; Resp 17; Pulse Ox 99% ; rs5 09:09 Body Mass Index 24.41 (79.38 kg, 180.34 cm) ap3 ED Course: 08:49 Patient arrived in ED. ra3 08:57 Farhan Barron MD is Attending Physician. rt 09:10 No provider procedures requiring assistance completed. rs5 09:11 Triage completed. ap3 09:12 Arm band placed on right wrist. ap3 09:12 Patient has correct armband on for positive identification. Bed in low position. Call ap3 light in reach. Side rails up X 1. Pulse ox on. NIBP on. 09:13 Scottie Gibbs, RN is Primary Nurse. rs5 11:00 IV discontinued, intact, bleeding controlled, No redness/swelling at site. Pressure rs5 dressing applied. Administered Medications: 09:20 Drug: predniSONE PO 60 mg PO once Route: PO; rs5 10:00 Follow up: Response: No adverse reaction rs5 09:20 Drug: DuoNeb Nebulize (3:1) (2.5 mg - 0.5 mg) 3 ml Nebulizer once Route: Nebulizer; rs5 10:00 Follow up: Response: No adverse reaction rs5 09:55 Drug: Albuterol Inhalation 5 mg Inhalation once Route: Inhalation; rs5 10:40 Follow up: Response: No adverse reaction rs5 Medication: 11:00 VIS not applicable for this client. rs5 Outcome: 10:52 Discharge ordered by MD. rt 11:00 Discharged to home ambulatory, rs5 11:00 Condition: stable rs5 11:00 Discharge instructions given to patient, family, Instructed on discharge instructions, follow up and referral plans. Demonstrated understanding of instructions, follow-up care, 11:02 Patient left the ED. zm Signatures: Lorri Diaz RN RN ap3 Katy Alvarado Ryan, MD MD rt Scottie Gibbs, LOI RN rs5 Lucy Mistry 3 Corrections: (The following items were deleted from the chart) 10:47 09:05 Respiratory: Airway is patent Respiratory effort is even, unlabored, Respiratory rs5 pattern is regular, symmetrical, rs5
[2024-03-20 11:07] VITALS: TEMP 98
[2024-03-20 11:08] VITALS: BP 122/64; O2SAT 99
== END 2024-03-20 11:02 | disposition home or self-care (01) ==
LOC: ER 08:47
DX: J45.909 Unspecified asthma, uncomplicated (principal); F17.220 Nicotine dependence, chewing tobacco, uncomplicated
CPT/HCPCS: 99284; J7512; J7613 ×2; J7644

== ENCOUNTER 2024-03-21 18:45 | Emergency (ER) | payer OTHER ==
[2024-03-21] MEDS ORDERED: IPRATROPIUM BROM 0.5MG/2.5ML ONE (19:13)
[2024-03-21] MEDS ORDERED: ALBUTEROL 2.5 MG/3 ML NEB SOL ONE ×2 (19:13→20:23)
--- NOTE | 2024-03-21 20:13 | ER ---
Nurse's Notes [facility] Name: Varghese Ugalde III Age: 23 yrs Sex: Male : 2000 Arrival Date: 03/21/2024 Time: 18:45 Bed 13 Private MD: Diagnosis: Unspecified asthma with (acute) exacerbation Presentation: 03/21 18:51 Chief complaint: Patient states: SOB and wheezing continues since visit yesterday. ll1 Breathing ,machine at home broke. Coronavirus screen: Client denies travel out of the [place] in the last 14 days. difficulty breathing, shortness of breath, Client presents with at least one sign or symptom that may indicate coronavirus-19. Standard/surgical mask placed on the client. Ebola Screen: Patient denies travel to an Ebola-affected area in the 21 days before illness onset. Initial Sepsis Screen: Does the patient meet any 2 criteria? No. Patient's initial sepsis screen is negative. Does the patient have a suspected source of infection? No. Patient's initial sepsis screen is negative. Risk Assessment: Do you want to hurt yourself or someone else? Patient reports no desire to harm self or others. Onset of symptoms was March 19, 2024. 18:51 Method Of Arrival: Ambulatory ll1 18:51 Acuity: JOANN 2 ll1 Triage Assessment: 20:47 General: Appears in no apparent distress. uncomfortable, slender, well groomed, well vc1 developed, Behavior is calm, cooperative, appropriate for age. Neuro: Level of Consciousness is awake, alert, obeys commands. Cardiovascular: Heart tones S1 S2 Capillary refill Patient's skin is warm and dry. Respiratory: Reports shortness of breath at rest Onset: The symptoms/episode began/occurred at an unknown time. the patient has mild shortness of breath. Respiratory: Reports Breath sounds with wheezes bilaterally. GI: Abdomen is flat. Historical: - Allergies: 18:47 CORN CONTAINING PRODUCTS; ll1 - PMHx: 18:47 Asthma; ll1 - PSHx: 18:47 LEFT PINKY; ll1 - Immunization history:: Adult Immunizations up to date. - Infectious Disease History:: Denies. - Social history:: Smoking status: Patient denies any tobacco usage or history of. Screenin:44 [facility] ED Fall Risk Assessment (Adult) History of falling in the last 3 months, vc1 including since admission No falls in past 3 months (0 pts) Confusion or Disorientation No (0 pts) Intoxicated or Sedated No (0 pts) Impaired Gait No (0 pts) Mobility Assist Device Used No (0 pt) Altered Elimination No (0 pt) Score/Fall Risk Level 0 - 2 = Low Risk Oriented to surroundings, Maintained a safe environment, Educated pt \T\ family on fall prevention, incl call for assistance when getting out of bed. Abuse screen: Denies threats or abuse. Nutritional screening: No deficits noted. Tuberculosis screening: No symptoms or risk factors identified. Assessment: 20:45 General: Appears in no apparent distress. comfortable, slender, well groomed, well vc1 developed, well nourished, Behavior is calm, cooperative, appropriate for age. Pain: Denies pain. Cardiovascular: Rhythm is regular Chest pain is denied. Cardiovascular: Heart tones S1 S2 present. Respiratory: Airway is patent Respiratory effort is even, unlabored, Respiratory pattern is symmetrical, tachypnea Breath sounds are diminished. Vital Signs: 18:51 BP 142 / 85; Pulse 89; Resp 24; Temp 97.7; Pulse Ox 98% on R/A; Weight 124.74 kg; ll1 Height 5 ft. 11 in. ; Pain 0/10; 20:46 BP 153 / 84; Pulse 87; Resp 22; Pulse Ox 98% ; vc1 18:51 Body Mass Index 38.35 (124.74 kg, 180.34 cm) ll1 18:51 Pain Scale: Adult ll1 ED Course: 18:46 Patient arrived in ED. mr 18:46 e[facility]gi Antunez [facility]C [facility]. kb 18:46 Eddie Landers MD is Attending Physician. kb 18:47 Arm band placed on Patient placed in an exam room, on a stretcher. ll1 18:52 Triage completed. ll1 19:10 Vika Alvarado, RN is Primary Nurse. cm10 19:18 Lorri Arnold, LOI is Primary Nurse. al5 20:46 No provider procedures requiring assistance completed. Patient did not have IV access vc1 during this emergency room visit. 20:54 Provided Education on: fill rx. vc1 Administered Medications: 19:18 Drug: Albuterol Inhalation 2.5 mg Inhalation once Route: Inhalation; al5 20:10 Follow up: Response: No adverse reaction; Wheezing unchanged al5 19:18 Drug: Ipratropium Inhalation Aerosol 0.5 mg Inhalation once Route: Inhalation; al5 20:09 Follow up: Response: No adverse reaction; Wheezing unchanged al5 20:25 Drug: Albuterol Inhalation 2.5 mg Inhalation once Route: Inhalation; vc1 Medication: 20:47 VIS not applicable for this client. vc1 Outcome: 20:13 Discharge ordered by . kb 20:46 Discharged to home ambulatory, vc1 20:46 Condition: improved 20:54 Discharge instructions given to patient, Instructed on discharge instructions, follow vc1 up and referral plans. medication usage, Demonstrated understanding of instructions, follow-up care, medications, Prescriptions given X 2, 20:54 Patient left the ED. vc1 Signatures: Regi Antunez, SIGNAL SUPERVISOR-C SIGNAL SUPERVISOR-CkLeonor Boyd, Reg Reg mr Shana Tracey, RN RN ll1 Nancy Weinstein RN RN vc1 Vika Alvarado RN RN cm10 Lorri Arnold RN RN al5 Corrections: (The following items were deleted from the chart) 20:36 20:36 Albuterol Inhalation 2.5 mg Inhalation vc1 vc1
--- NOTE | 2024-03-21 20:13 | EDPHYS ---
Physician Documentation [facility] Name: Varghese Ugalde III Age: 23 yrs Sex: Male : 2000 Arrival Date: 03/21/2024 Time: 18:45 Bed 13 Private MD: ED Physician Eddie Landers HPI: 03/21 21:51 This 23 yrs old Black Male presents to ER via Ambulatory with complaints of Shortness kb Of Breath. 21:51 Pt is a 23 year old male who presents for wheezing and shortness of breath that has kb been going on for a couple of days. States he has been here for this and was given steroids and antibiotics. Reports his neb machine stopped working today so he came in because he needs a treatment. . Historical: - Allergies: 18:47 CORN CONTAINING PRODUCTS; ll1 - PMHx: 18:47 Asthma; ll1 - PSHx: 18:47 LEFT PINKY; ll1 - Immunization history:: Adult Immunizations up to date. - Infectious Disease History:: Denies. - Social history:: Smoking status: Patient denies any tobacco usage or history of. ROS: 21:50 Constitutional: As per HPI kb Exam: 21:50 Constitutional: This is a well developed, well nourished patient who is awake, alert, kb and in no acute distress. Head/Face: Normocephalic, atraumatic. ENT: Moist Mucous membranes Cardiovascular: Regular rate Abdomen/GI: Soft, non-tender. No distention Skin: Warm, dry with normal turgor. Normal color. MS/ Extremity: Pulses equal, no cyanosis. Neurovascular intact. Full, normal range of motion. Neuro: Awake and alert, GCS 15, oriented to person, place, time, and situation. Moves all extremities. Normal gait. 21:50 Respiratory: the patient does not display signs of respiratory distress, Respirations: normal, Breath sounds: wheezing: expiratory that is moderate, is heard diffusely, Vital Signs: 18:51 BP 142 / 85; Pulse 89; Resp 24; Temp 97.7; Pulse Ox 98% on R/A; Weight 124.74 kg; ll1 Height 5 ft. 11 in. ; Pain 0/10; 20:46 BP 153 / 84; Pulse 87; Resp 22; Pulse Ox 98% ; vc1 18:51 Body Mass Index 38.35 (124.74 kg, 180.34 cm) ll1 18:51 Pain Scale: Adult ll1 MDM: 18:48 Patient medically screened. kb 21:50 Differential diagnosis: asthma, Bronchitis. Data reviewed: vital signs, nurses notes. kb Test considered but Not performed: X-ray: CXR considered. Pt states he had that done 2 days ago and it was clear. States "I just need a neb treatment because my machine broke today.". Counseling: I had a detailed discussion with the patient and/or guardian regarding the historical points, exam findings, and any diagnostic results supporting the discharge/admit diagnosis, the need for outpatient follow up, a family practitioner, to return to the emergency department if symptoms worsen or persist or if there are any questions or concerns that arise at home. Administered Medications: 19:18 Drug: Albuterol Inhalation 2.5 mg Inhalation once Route: Inhalation; al5 20:10 Follow up: Response: No adverse reaction; Wheezing unchanged al5 19:18 Drug: Ipratropium Inhalation Aerosol 0.5 mg Inhalation once Route: Inhalation; al5 20:09 Follow up: Response: No adverse reaction; Wheezing unchanged al5 20:25 Drug: Albuterol Inhalation 2.5 mg Inhalation once Route: Inhalation; vc1 Disposition Summary: 03/21/24 20:13 Discharge Ordered Notes: Location: Home kb Condition: Stable kb Diagnosis - Unspecified asthma with (acute) exacerbation kb Followup: kb - With: Emergency Department - When: As needed - Reason: Worsening of condition Followup: kb - With: Private Physician - When: 2 - 3 days - Reason: Recheck today's complaints, Continuance of care, Re-evaluation by your physician Discharge Instructions: - Discharge Summary Sheet kb - Asthma, Adult, [id number] kb Forms: - Medication Reconciliation Form kb - Antibiotic Education kb - Prescription Opioid Use kb - Patient Portal Instructions kb - Leadership Thank You Letter kb Prescriptions: - albuterol sulfate 90 mcg/actuation Inhalation HFA Aerosol Inhaler - inhale 2 puff INHALATION route every 4-6 hours As needed; 1 unit; Refills: 0, kb Product Selection Permitted - Albuterol Sulfate 2.5 mg /3 mL (0.083 %) Inhalation Solution for Nebulization - inhale 1 unit NEBULIZATION route every 8 hours As needed; 1 Unspecified; kb Refills: 0, Product Selection Permitted Addendum: 04/01/2024 04:52 Co-signature as Attending Physician, Eddie Landers MD I agree with the assessment and c jones plan of care. Signatures: Regi Antunez, MANAGER TRANSPORTATION-C MANAGER TRANSPORTATION-Eddie Olmos MD MD cha Lewis, Lynsay, RN RN ll1 Nancy Weinstein RN RN vc1 Lorri Arnold RN RN al5
[2024-03-21 20:59] VITALS: TEMP 97.7; O2SAT 98
[2024-03-21 21:00] VITALS: BP 153/84
== END 2024-03-21 20:54 | disposition home or self-care (01) ==
LOC: ER 18:45
DX: J45.901 Unspecified asthma with (acute) exacerbation (principal)
CPT/HCPCS: 99284; J7613 ×2; J7644

== ENCOUNTER 2024-04-08 19:22 | Emergency (ER) | payer OTHER ==
[2024-04-08] MEDS ORDERED: predniSONE 20 MG TAB ONE (20:10)
[2024-04-08] MEDS ORDERED: IPRATROPIUM BROM 0.5MG/2.5ML ONE (20:11)
[2024-04-08] MEDS ORDERED: ALBUTEROL 2.5 MG/3 ML NEB SOL ONE (20:11)
--- NOTE | 2024-04-08 21:09 | EDPHYS ---
Physician Documentation [facility] Name: Varghese Ugalde III Age: 23 yrs Sex: Male : 2000 Arrival Date: 04/08/2024 Time: 19:22 Bed 12 Private MD: ED Physician Alverto Villar HPI: 04/08 21:11 This 23 yrs old Black Male presents to ER via Ambulatory with complaints of Shortness kb Of Breath, Asthma Exacerbation. 21:11 Pt is a 23 year old male with a history of asthma who presents for wheezing that kb started today. States he gave his neb machine to his son so he had to come in for a breathing treatment. Denies shortness of breath, fever. Historical: - Allergies: 19:38 CORN CONTAINING PRODUCTS; cm10 - PMHx: 19:38 Asthma; cm10 - PSHx: 19:38 LEFT PINKY; cm10 - Immunization history:: Adult Immunizations up to date. - Infectious Disease History:: Denies. - Social history:: Smoking status: Patient reports use of chewing tobacco. ROS: 21:09 Constitutional: As per HPI kb Exam: 21:09 Constitutional: This is a well developed, well nourished patient who is awake, alert, kb and in no acute distress. Head/Face: Normocephalic, atraumatic. ENT: Moist Mucous membranes Cardiovascular: Regular rate Abdomen/GI: Soft, non-tender. No distention Skin: Warm, dry with normal turgor. Normal color. MS/ Extremity: Pulses equal, no cyanosis. Neurovascular intact. Full, normal range of motion. Neuro: Awake and alert, GCS 15, oriented to person, place, time, and situation. Moves all extremities. Normal gait. 21:09 Respiratory: the patient does not display signs of respiratory distress, Respirations: normal, Breath sounds: wheezing: inspiratory that is mild, is scattered, Vital Signs: 19:37 BP 108 / 88; Pulse 74; Resp 16; Temp 96.8; Pulse Ox 100% ; Weight 83.91 kg; Height 5 cm10 ft. 11 in. ; Pain 9/10; 20:18 BP 139 / 65; Pulse 69; Resp 18; Pulse Ox 100% on R/A; me1 21:24 BP 117 / 59; Pulse 60; Resp 16; Temp 98.1; Pulse Ox 100% on R/A; me1 19:37 Body Mass Index 25.80 (83.91 kg, 180.34 cm) cm10 19:37 Pain Scale: Adult cm10 MDM: 19:56 Patient medically screened. kb 21:10 Differential diagnosis: asthma, Bronchitis. Data reviewed: vital signs, nurses notes. I kb considered the following discharge prescriptions or medication management in the emergency department Antibiotics: At this time antibiotics are not recommended. Test considered but Not performed: X-ray: CXR considered but pt has known asthma, wheezing is bilateral and better after neb treatment, no resp distress. Counseling: I had a detailed discussion with the patient and/or guardian regarding the historical points, exam findings, and any diagnostic results supporting the discharge/admit diagnosis, the need for outpatient follow up, a family practitioner, to return to the emergency department if symptoms worsen or persist or if there are any questions or concerns that arise at home. Administered Medications: 20:18 Drug: Albuterol Inhalation 2.5 mg Inhalation once Route: Inhalation; me1 20:18 Drug: Ipratropium Inhalation Aerosol 0.5 mg Inhalation once Route: Inhalation; me1 20:18 Drug: predniSONE PO 40 mg PO once Route: PO; me1 21:22 Follow up: Response: No adverse reaction me1 Disposition: 04/09 03:24 Co-signature as Attending Physician, Alverto Villar MD I agree with the assessment sp4 and plan of care. I reviewed the patient's care provided by the Advanced Practice Provider and agree with the diagnosis and treatment plan. Disposition Summary: 04/08/24 21:09 Discharge Ordered Notes: Location: Home kb Condition: Stable kb Diagnosis - Unspecified asthma with (acute) exacerbation kb Followup: kb - With: Emergency Department - When: As needed - Reason: Worsening of condition Followup: kb - With: Private Physician - When: 2 - 3 days - Reason: Recheck today's complaints, Continuance of care, Re-evaluation by your physician Discharge Instructions: - Discharge Summary Sheet kb - Asthma, Adult, [id number] kb Forms: - Medication Reconciliation Form kb - Antibiotic Education kb - Prescription Opioid Use kb - Patient Portal Instructions kb - Leadership Thank You Letter kb - Work release form me1 Signatures: Regi Antunez FNP-C FNP-Alverto Montiel MD MD sp4 Vika Alvarado, RN RN cm10 Patti Temple, LOI RN me1
--- NOTE | 2024-04-08 21:09 | ER ---
Nurse's Notes [facility] Name: Varghese Ugalde III Age: 23 yrs Sex: Male : 2000 Arrival Date: 04/08/2024 Time: 19:22 Bed 12 Private MD: Diagnosis: Unspecified asthma with (acute) exacerbation Presentation: 04/08 19:37 Chief complaint: Patient states: Shortness of breath onset today. Pt also reports cm10 having right sided rib pain. Coronavirus screen: Client denies travel out of the [place] in the last 14 days. At this time, the client does not indicate any symptoms associated with coronavirus-19. Ebola Screen: Patient denies travel to an Ebola-affected area in the 21 days before illness onset. No symptoms or risks identified at this time. Initial Sepsis Screen: Does the patient meet any 2 criteria? No. Patient's initial sepsis screen is negative. Does the patient have a suspected source of infection? No. Patient's initial sepsis screen is negative. Risk Assessment: Do you want to hurt yourself or someone else? Patient reports no desire to harm self or others. Onset of symptoms was April 08, 2024. 19:37 Method Of Arrival: Ambulatory cm10 19:37 Acuity: JOANN 3 cm10 Triage Assessment: 19:38 General: Appears in no apparent distress. uncomfortable, Behavior is calm, cooperative. cm10 Neuro: No deficits noted. Level of Consciousness is awake, alert, obeys commands, Oriented to person, place, time, situation, Appropriate for age. Respiratory: Breath sounds with wheezes bilaterally. 21:29 Respiratory: Reports shortness of breath at rest on exertion the patient has mild me1 shortness of breath. Historical: - Allergies: 19:38 CORN CONTAINING PRODUCTS; cm10 - PMHx: 19:38 Asthma; cm10 - PSHx: 19:38 LEFT PINKY; cm10 - Immunization history:: Adult Immunizations up to date. - Infectious Disease History:: Denies. - Social history:: Smoking status: Patient reports use of chewing tobacco. Screenin:19 [facility] ED Fall Risk Assessment (Adult) History of falling in the last 3 months, me1 including since admission No falls in past 3 months (0 pts) Confusion or Disorientation No (0 pts) Intoxicated or Sedated No (0 pts) Impaired Gait No (0 pts) Mobility Assist Device Used No (0 pt) Altered Elimination No (0 pt) Score/Fall Risk Level 0 - 2 = Low Risk Maintained a safe environment, Provided non-skid footwear, Hourly rounding (assess needs \T\ fall precautionary measures) done. Abuse screen: Denies threats or abuse. Nutritional screening: No deficits noted. Tuberculosis screening: No symptoms or risk factors identified. Assessment: 20:19 General: Appears comfortable, well groomed, well developed, well nourished, Behavior is me1 calm, cooperative, appropriate for age, Reports Shortness of breath onset today. Pt also reports having right sided rib pain. Pain: Complains of pain in right rib Pain does not radiate. Pain currently is 3 out of 10 on a pain scale. Quality of pain is described as tender, Pain began gradually, Is continuous. Neuro: Level of Consciousness is awake, alert, obeys commands, Oriented to person, place, time, situation, Appropriate for age. Cardiovascular: Patient's skin is warm and dry. Rhythm is regular. Respiratory: Airway is patent Respiratory effort is even, unlabored, Respiratory pattern is regular, symmetrical. GI: No signs and/or symptoms were reported involving the gastrointestinal system. : No signs and/or symptoms were reported regarding the genitourinary system. EENT: No signs and/or symptoms were reported regarding the EENT system. Derm: Skin is intact, is healthy with good turgor, Skin is pink, warm \T\ dry. Musculoskeletal: No signs and/or symptoms reported regarding the musculoskeletal system. Vital Signs: 19:37 BP 108 / 88; Pulse 74; Resp 16; Temp 96.8; Pulse Ox 100% ; Weight 83.91 kg; Height 5 cm10 ft. 11 in. ; Pain 9/10; 20:18 BP 139 / 65; Pulse 69; Resp 18; Pulse Ox 100% on R/A; me1 21:24 BP 117 / 59; Pulse 60; Resp 16; Temp 98.1; Pulse Ox 100% on R/A; me1 19:37 Body Mass Index 25.80 (83.91 kg, 180.34 cm) cm10 19:37 Pain Scale: Adult cm10 ED Course: 19:28 Patient arrived in ED. jj6 19:38 Triage completed. cm10 19:39 Arm band placed on Patient placed in an exam room, on a stretcher. cm10 19:56 Regi Antunez FNP-C is [facility]. kb 19:56 Alverto Villar MD is Attending Physician. kb 20:05 Patti Temple, RN is Primary Nurse. me1 20:19 Patient has correct armband on for positive identification. Bed in low position. Call me1 light in reach. Side rails up X 1. Provided Education on: POC. Verbalized understanding. . Client placed on continuous cardiac and pulse oximetry monitoring. NIBP monitoring applied. Pulse ox on. NIBP on. 20:19 No provider procedures requiring assistance completed. Patient did not have IV access me1 during this emergency room visit. Administered Medications: 20:18 Drug: Albuterol Inhalation 2.5 mg Inhalation once Route: Inhalation; me1 20:18 Drug: Ipratropium Inhalation Aerosol 0.5 mg Inhalation once Route: Inhalation; me1 20:18 Drug: predniSONE PO 40 mg PO once Route: PO; me1 21:22 Follow up: Response: No adverse reaction me1 Medication: 20:19 VIS not applicable for this client. me1 Outcome: 21:09 Discharge ordered by MD. kb 21:29 Discharged to home me1 21:29 Discharged to home ambulatory, me1 21:29 Condition: stable 21:29 Discharge instructions given to patient, Instructed on discharge instructions, follow up and referral plans. Demonstrated understanding of instructions, follow-up care, 21:29 Patient left the ED. me1 Signatures: Regi Antunez FNP-C FNP-Ckb Jeffries, Jennifer jj6 Vika Alvarado RN RN cm10 Patti Temple, RN RN me1 Corrections: (The following items were deleted from the chart) 20:19 19:37 Chief complaint: Patient states: Shortness of breath onset today. Pt also reports me1 having right sided rib pain. cm10
[2024-04-08 21:42] VITALS: O2SAT 100
[2024-04-08 21:46] VITALS: BP 117/59; TEMP 98.1
== END 2024-04-08 21:29 | disposition home or self-care (01) ==
LOC: ER 19:22
DX: J45.901 Unspecified asthma with (acute) exacerbation (principal); F17.220 Nicotine dependence, chewing tobacco, uncomplicated
CPT/HCPCS: 99284; J7512; J7613; J7644

== ENCOUNTER 2024-05-26 08:50 | Emergency (ER) | payer OTHER ==
--- NOTE | 2024-05-26 09:26 | EDPHYS ---
Physician Documentation [facility] Name: Varghese Ugalde III Age: 23 yrs Sex: Male : 2000 Arrival Date: 05/26/2024 Time: 08:50 Bed 5 Private MD: ED Physician Courtney Garcia HPI: 05/26 09:23 This 23 yrs old Black Male presents to ER via Ambulatory with complaints of WORK NOTE. sp3 09:23 Patient here for work note seeking clearance from his asthma diagnosis to be able to sp3 get a job. He states he does not have a primary care physician. Patient has no complaints whatsoever and cannot tell me anything about his asthma history or further details. He is just "wanting a signature". Review of systems completely negative.. Historical: - Allergies: :04 CORN CONTAINING PRODUCTS; iw - Home Meds: 09:04 None [Active]; iw - PMHx: 09:04 Asthma; iw - PSHx: 09:04 LEFT PINKY; iw - Immunization history:: Adult Immunizations not up to date. - Infectious Disease History:: Denies. - Social history:: Smoking status: . ROS: 09:24 Constitutional: Negative for fever, chills, and weight loss, Eyes: Negative for injury, sp3 pain, redness, and discharge, Neck: Negative for injury, pain, and swelling, Cardiovascular: Negative for chest pain, palpitations, and edema, Respiratory: Negative for shortness of breath, cough, wheezing, and pleuritic chest pain, Abdomen/GI: Negative for abdominal pain, nausea, vomiting, diarrhea, and constipation, Back: Negative for injury and pain, 09:24 All other systems are negative, Exam: 09:24 Constitutional: This is a well developed, well nourished patient who is awake, alert, sp3 and in no acute distress. Head/Face: Normocephalic, atraumatic. Eyes: Pupils equal round and reactive to light, extra-ocular motions intact. Lids and lashes normal. Conjunctiva and sclera are non-icteric and not injected. Cornea within normal limits. Periorbital areas with no swelling, redness, or edema. Neck: Trachea midline, no thyromegaly or masses palpated, and no cervical lymphadenopathy. Supple, full range of motion without nuchal rigidity, or vertebral point tenderness. No Meningismus. Chest/axilla: Normal chest wall appearance and motion. Nontender with no deformity. No lesions are appreciated. Cardiovascular: Regular rate and rhythm with a normal S1 and S2. No gallops, murmurs, or rubs. Normal PMI, no JVD. No pulse deficits. Respiratory: Lungs have equal breath sounds bilaterally, clear to auscultation and percussion. No rales, rhonchi or wheezes noted. No increased work of breathing, no retractions or nasal flaring. Abdomen/GI: Soft, non-tender, with normal bowel sounds. No distension or tympany. No guarding or rebound. No evidence of tenderness throughout. Neuro: Awake and alert, GCS 15, oriented to person, place, time, and situation. Cranial nerves II-XII grossly intact. Motor strength 5/5 in all extremities. Sensory grossly intact. Cerebellar exam normal. Normal gait. Vital Signs: 09:02 BP 130 / 72; Pulse 62-; Resp 16; Temp 97.8; Pulse Ox 99% on R/A; Weight 83.91 kg; iw Height 5 ft. 11 in. ; Pain 0/10; 09:02 Body Mass Index 25.80 (83.91 kg, 180.34 cm) iw 09:02 Pain Scale: Adult iw MDM: 09:19 Medical Screening Exam initiated sp3 09:24 Data reviewed: vital signs, nurses notes. ED course: Since patient cannot tell me sp3 anything about his asthma history, I am unable to clear him for any job-related issue. I explained this to him and told him he should seek a primary care physician and potentially get pulmonary function testing done to be able to clear him.. Administered Medications: No medications were administered Disposition Summary: 05/26/24 09:25 Discharge Ordered Notes: Location: Home sp3 Condition: Stable sp3 Diagnosis - Unspecified asthma, uncomplicated sp3 Followup: sp3 - With: Private Physician - When: Upon discharge from the Emergency Department - Reason: Continuance of care Discharge Instructions: - Discharge Summary Sheet sp3 - Asthma, Adult sp3 Forms: - Medication Reconciliation Form sp3 - Antibiotic Education sp3 - Prescription Opioid Use sp3 - Patient Portal Instructions sp3 - Leadership Thank You Letter sp3 Signatures: Rina Meng RN RN iw Garcia, Setul, MD MD sp3
--- NOTE | 2024-05-26 09:26 | ER ---
Nurse's Notes [facility] Name: Varghese Ugalde III Age: 23 yrs Sex: Male : 2000 Arrival Date: 05/26/2024 Time: 08:50 Bed 5 Private MD: Diagnosis: Unspecified asthma, uncomplicated Presentation: 05/26 09:02 Chief complaint: Patient states: needs a work clearance for his work physical , states iw he has asthma. Coronavirus screen: At this time, the client does not indicate any symptoms associated with coronavirus-19. Ebola Screen: No symptoms or risks identified at this time. Initial Sepsis Screen: Does the patient meet any 2 criteria? No. Patient's initial sepsis screen is negative. Does the patient have a suspected source of infection? No. Patient's initial sepsis screen is negative. Risk Assessment: Do you want to hurt yourself or someone else? Patient reports no desire to harm self or others. 09:02 Method Of Arrival: Ambulatory iw 09:02 Acuity: JOANN 5 iw Historical: - Allergies: 09:04 CORN CONTAINING PRODUCTS; iw - Home Meds: 09:04 None [Active]; iw - PMHx: 09:04 Asthma; iw - PSHx: 09:04 LEFT PINKY; iw - Immunization history:: Adult Immunizations not up to date. - Infectious Disease History:: Denies. - Social history:: Smoking status: . Screenin:06 [facility] ED Fall Risk Assessment (Adult) History of falling in the last 3 months, iw including since admission No falls in past 3 months (0 pts) Confusion or Disorientation No (0 pts) Intoxicated or Sedated No (0 pts) Impaired Gait No (0 pts) Mobility Assist Device Used No (0 pt) Altered Elimination No (0 pt) Score/Fall Risk Level 0 - 2 = Low Risk Oriented to surroundings, Maintained a safe environment. Abuse screen: Denies injuries from another. Nutritional screening: No deficits noted. Tuberculosis screening: No symptoms or risk factors identified. Assessment: 09:05 General: Appears in no apparent distress. Behavior is calm, cooperative. Pain: Denies iw pain. Neuro: Level of Consciousness is awake, alert, obeys commands, Oriented to person, place, time, situation, Moves all extremities. Full function. Cardiovascular: Patient's skin is warm and dry. Respiratory: Respiratory effort is even, unlabored, Respiratory pattern is regular, symmetrical. GI: No signs and/or symptoms were reported involving the gastrointestinal system. Derm: Skin is intact, is healthy with good turgor. Musculoskeletal: Range of motion: intact in all extremities. 09:06 Reassessment: pt requesting that we call his work place to have them fax us his iw physical clearance sheet. Vital Signs: 09:02 BP 130 / 72; Pulse 62-; Resp 16; Temp 97.8; Pulse Ox 99% on R/A; Weight 83.91 kg; iw Height 5 ft. 11 in. ; Pain 0/10; 09:02 Body Mass Index 25.80 (83.91 kg, 180.34 cm) iw 09:02 Pain Scale: Adult iw ED Course: 08:53 Patient arrived in ED. mr 08:56 Rina Meng, RN is Primary Nurse. iw 09:03 Triage completed. iw 09:04 Arm band placed on. iw 09:19 Courtney Garcia MD is Attending Physician. sp3 Administered Medications: No medications were administered Medication: 09:06 VIS not applicable for this client. iw Outcome: 09:25 Discharge ordered by . sp3 09:30 Patient left the ED. iw Signatures: Leonor Ortiz, Reg Reg mr Rina Meng, LOI RN iw Courtney Garcia MD MD sp3
[2024-05-26 09:34] VITALS: BP 130/72; TEMP 97.8; O2SAT 99
== END 2024-05-26 09:30 | disposition home or self-care (01) ==
LOC: ER 08:50
DX: J45.909 Unspecified asthma, uncomplicated (principal)